=== PATIENT | male | born 1995 | race Two or more races ===

== ENCOUNTER 2022-09-05 00:51 | Emergency (ER) | payer MEDICAID ==
[~2022-09-05] VITALS: Ht 170.2 cm; Wt 54.5 kg
--- NOTE | 2022-09-05 02:43 | NUR ---
spoke with Magno at [facility] regarding pt accidental OD. No work up required, pt may go home, 4 hours s/p accidental ingestion with stable VS
[2022-09-05 03:18] VITALS: BP 120/68
== END 2022-09-05 03:20 | disposition home or self-care (01) ==
LOC: ER 00:51
DX: T50.0X1A Poisoning by mineralocorticoids and their antagonists, accidental (unintentional), initial encounter (principal); F41.9 Anxiety disorder, unspecified; Y92.89 Other specified places as the place of occurrence of the external cause; F12.10 Cannabis abuse, uncomplicated
CPT/HCPCS: 99281